=== PATIENT | male | born 1955 | race Caucasian/White ===

== ENCOUNTER 2022-09-01 10:20 | Outpatient (CLI) | payer MEDICARE, BC, SELFPAY | END 2022-09-01 10:21 | disposition home or self-care (01) | PROVIDERS: PCP Family Medicine; Visit Provider Nurse Practitioner Family | DX: E78.5 Hyperlipidemia, unspecified (principal); Z12.5 Encounter for screening for malignant neoplasm of prostate | CPT/HCPCS: 80061; 84153 ==

== ENCOUNTER 2023-06-01 14:47 | Outpatient (RCR) | payer MEDICARE, BC, SELFPAY | END 2023-09-03 15:51 | disposition home or self-care (01) | PROVIDERS: PCP Family Medicine; Visit Provider Family Medicine | DX: S46.009A Unspecified injury of muscle(s) and tendon(s) of the rotator cuff of unspecified shoulder, initial encounter (principal); M13.819 Other specified arthritis, unspecified shoulder; M25.512 Pain in left shoulder; M62.81 Muscle weakness (generalized); Z51.89 Encounter for other specified aftercare | CPT/HCPCS: 97110; 97161 ==

== ENCOUNTER 2023-09-09 12:18 | Outpatient (CLI) | payer MEDICARE, BC, SELFPAY | END 2023-09-09 12:19 | disposition home or self-care (01) | LOC: LKVREF 12:19 | PROVIDERS: PCP Family Medicine; Visit Provider Nurse Practitioner Family | DX: I10 Essential (primary) hypertension (principal) | CPT/HCPCS: 80053 ==

== ENCOUNTER 2024-09-28 15:25 | Outpatient (CLI) | payer MEDICARE, BC, SELFPAY | END 2024-09-28 15:26 | disposition home or self-care (01) | PROVIDERS: PCP Family Medicine; Visit Provider Family Medicine | DX: E78.2 Mixed hyperlipidemia (principal); I10 Essential (primary) hypertension; Z12.5 Encounter for screening for malignant neoplasm of prostate | CPT/HCPCS: 80048; 80061; G0103 ==

== ENCOUNTER 2025-04-10 11:38 | Outpatient (CLI) | payer MEDICARE, BC, SELFPAY | END 2025-04-10 11:39 | disposition home or self-care (01) | LOC: FRMREF 11:39 | PROVIDERS: PCP Family Medicine; Visit Provider Family Medicine | DX: L72.3 Sebaceous cyst (principal) | CPT/HCPCS: 87070 ==